=== PATIENT | male | born 1965 | race Two or more races ===

== ENCOUNTER 2017-06-14 16:56 | Emergency (ER) | payer OTHER ==
[2017-06-14 17:07] VITALS: BP 145/102; PULSE 88; TEMP 98.2
--- NOTE | 2017-06-14 17:07 | PDOC ---
History of Present Illness <Ren Maria - Last Filed: 06/15/17 03:31> - History of Present Illness Initial Comments: 06/14/17 19:46 Patient is a 51 year old male with a significant past medical history of visual handicap, who presents to the ED with complaints of left lower back pain that began this afternoon. Patient reports lifting a case of wine in store when he suddenly began to experiencing sharp left side back pain. He reports experiencing episodes like this before stating, this happens once or twice a year but never this severe which is why i came in. He reports applying icy hot to back as well as taking advil x2 for back pain, with minimal relief. Denies LE weakness or numbness. Denies urinary retention or incontinence. Denies chest pain, Sob. Denies nausea, vomiting. Denies fevers, chills. Denies loss of consciousness, trauma to affected area. Denies any other symptoms. Allergies: None Social history: Lives with and kids. No smoking. No alcohol. No illicit drugs. Surgical history: Bilateral partial knee replacements. PMD: None <Titus Rivera - Last Filed: 06/15/17 17:38> - General Chief Complaint: Back Pain Stated Complaint: LOWER BACK PAIN S/P INJURY AT WORK Time Seen by Provider: 06/14/17 17:07 Past History <Ren Maria - Last Filed: 06/15/17 03:31> - Past Medical History COPD: No Other medical history: PT DENIES - Suicide/Smoking/Psychosocial Hx Smoking History: Never smoked Hx Alcohol Use: No Drug/Substance Use Hx: No Substance Use Type: None <Titus Rivera - Last Filed: 06/15/17 17:38> - Past Medical History Allergies/Adverse Reactions: Allergies Allergy/AdvReac Type Severity Reaction Status Date / Time No Known Allergies Allergy Verified 06/14/17 16:59 Home Medications: Ambulatory Orders Diazepam [Valium] 5 mg PO Q6H PRN #12 tablet MDD 20mg 06/14/17 Naproxen 500 mg PO BID PRN #20 tablet 06/14/17 Review of Systems - Review of Systems Comments:: 06/14/17 19:47 GENERAL/CONSTITUTIONAL: No fever or chills. No weakness. HEAD, EYES, EARS, NOSE AND THROAT: No change in vision. No ear pain or discharge. No sore throat. GASTROINTESTINAL: No nausea, vomiting, diarrhea or constipation. GENITOURINARY: No dysuria, frequency, or change in urination. CARDIOVASCULAR: No chest pain or shortness of breath. RESPIRATORY: No cough, wheezing, or hemoptysis. MUSCULOSKELETAL: +Left lower back pain. No joint or muscle swelling or pain. No neck pain. SKIN: No rash NEUROLOGIC: No headache, vertigo, loss of consciousness, or change in strength/ sensation. ENDOCRINE: No increased thirst. No abnormal weight change. HEMATOLOGIC/LYMPHATIC: No anemia, easy bleeding, or history of blood clots. ALLERGIC/IMMUNOLOGIC: No hives or skin allergy. <Titus Rivera - Last Filed: 06/15/17 17:38> *Physical Exam - Vital Signs Last Vital Signs Temp Pulse Resp BP Pulse Ox 98.2 F 88 18 145/102 100 06/14/17 16:57 06/14/17 16:57 06/14/17 16:57 06/14/17 16:57 06/14/17 16:57 <Ren Maria - Last Filed: 06/15/17 03:31> - Vital Signs Last Vital Signs Temp Pulse Resp BP Pulse Ox 98.2 F 88 18 145/102 100 06/14/17 16:57 06/14/17 16:57 06/14/17 16:57 06/14/17 16:57 06/14/17 16:57 - Physical Exam Comments: 06/14/17 19:47 GENERAL: Awake, alert, and fully oriented, in no acute distress HEAD: No signs of trauma EYES: PERRLA, EOMI, sclera anicteric, conjunctiva clear ENT: Auricles normal inspection, hearing grossly normal, nares patent, oropharynx clear without exudates. Moist mucosa NECK: Normal ROM, supple, no lymphadenopathy, JVD, or masses LUNGS: Breath sounds equal, clear to auscultation bilaterally. No wheezes, and no crackles HEART: Regular rate and rhythm, normal S1 and S2, no murmurs, rubs or gallops ABDOMEN: Soft, nontender, normoactive bowel sounds. No guarding, no rebound. No masses BACK: +Left lumbar paraspinal tenderness to palpation. No Midline, cervical, thoracic or lumbar tenderness to palpation. EXTREMITIES: Normal range of motion, no edema. No clubbing or cyanosis. No cords , erythema, or tenderness NEUROLOGICAL: Normal speech, cranial nerves intact, negative pronator drift, 5/ 5 strength in all 4 extremities, normal sensation to light touch in all 4 extremities, normal cerebellar exam, antalgic but steady gait, normal reflexes and tone SKIN: Warm, Dry, normal turgor, no rashes or lesions noted. <Titus Rivera - Last Filed: 06/15/17 17:38> ED Treatment Course - Medications Given in the ED: ED Medications Discontinued Medications Generic Name Dose Route Start Last Admin Trade Name Freq PRN Reason Stop Dose Admin Diazepam 5 mg 06/14/17 18:46 06/14/17 18:55 Valium - PO 06/14/17 18:47 5 mg ONCE ONE Administration Ketorolac Tromethamine 30 mg 06/14/17 18:46 06/14/17 18:55 Toradol Injection - IM 06/14/17 18:47 30 mg ONCE ONE Administration <Ren Maria - Last Filed: 06/15/17 03:31> Medical Decision Making - Medical Decision Making 06/15/17 03:31 improved <Ren Maria - Last Filed: 06/15/17 03:31> - Medical Decision Making 06/14/17 18:53 51-year-old male with no significant past medical history presents to the emergency department with left lower back pain after lifting a heavy box. Vitals unremarkable. Exam with lumbar paraspinal tenderness to palpation. Patient is neurologically intact and able to ambulate. Likely muscular strain vs disc herniation. Will treat with Toradol and Valium and reassess. 06/14/17 19:10 Pt signed out to ON attending for re-eval and dispo. <Titus Rivera - Last Filed: 06/15/17 17:38> *DC/Admit/Observation/Transfer <Ren Maria - Last Filed: 06/15/17 03:31> <Titus Rivera - Last Filed: 06/15/17 17:38> Diagnosis at time of Disposition: Lower back pain Qualifiers: Chronicity: acute Back pain laterality: unspecified Sciatica presence: without sciatica Qualified Code(s): M54.5 - Low back pain - Discharge Dispostion Disposition: HOME Condition at time of disposition: Stable - Prescriptions Prescriptions: Diazepam [Valium] 5 mg PO Q6H PRN #12 tablet MDD 20mg PRN Reason: back spasm Naproxen 500 mg PO BID PRN #20 tablet PRN Reason: Back Pain - Patient Instructions Printed Discharge Instructions: DI for Low Back Pain Additional Instructions: You likely had a muscular strain today, however you may have herniated discs as well. Follow up with your primary doctor within 1 week for referral for an MRI of your back. Return to the emergency department if you have any new, worsening , or concerning symptoms. - Post Discharge Activity Forms/Work/School Notes: Back to Work
[2017-06-14] MEDS ORDERED: diazePAM 5 MG TABLET PO ONE (18:46)
[2017-06-14] MEDS ORDERED: KETOROLAC TROMETHAMINE 15 MG/ML VIAL IM ONE (18:46)
[2017-06-14] MEDS ORDERED: KETOROLAC TROMETHAMINE 30 MG/1 ML VIAL ONE (18:49)
[2017-06-14] MEDS ORDERED: diazePAM 5 MG TABLET ONE (18:49)
== END 2017-06-14 20:02 | disposition home or self-care (01) ==
LOC: FER 16:56
CPT/HCPCS: 99281-25